=== PATIENT | female | born 1965 | race Caucasian/White ===

== ENCOUNTER 2023-05-12 20:25 | Emergency (ER) | payer MEDICAID, SELFPAY ==
[2023-05-12 20:36] VITALS: BP 146/86; PULSE 95; RESP 18; TEMP 36.6; O2SAT 97; BMI 20.8
--- NOTE | 2023-05-12 21:04 | ED.GENADULT ---
HPI - General Adult General Chief complaint: Skin/Abscess/Foreign Body Stated complaint: pain on rt bottom side going down & to other side Time Seen by Provider: 05/12/23 20:32 History of Present Illness HPI narrative: This 58-year-old female comes in with pain at her bottom that has been present on and off for the past 3 or 4 months. She did note some drainage today of purulent fluid from this area. She states that she has a history of Crohn's disease and was taking medication from her young adult years up to about age 35 and then has not taken anything since then. She does not report any fevers. Related Data Home Medications Medication Instructions Recorded Confirmed No Known Home Medications 05/12/23 05/12/23 Allergies Allergy/AdvReac Type Severity Reaction Status Date / Time No Known Drug Allergies Allergy Verified 05/12/23 20:36 Review of Systems Status of ROS: Reports: 10 or more systems reviewed and unremarkable except as noted in History and below Narrative: Constitutional: No fevers, no weight gain or loss. Eyes: No discharge. No vision changes. HENT: No congestion, no sore throat, no ear pain. Cardiovascular: No chest pain, no palpitations. Respiratory: No shortness of breath, no wheezes, no cough. Gastrointestinal: No abdominal pain, no vomiting, no diarrhea. Genitourinary: No dysuria, no hematuria. Musculoskeletal: Normal range of motion. Skin: No rashes, no pruritis. Neurological: No dizziness, weakness, sensory change, speech change. Endo/Heme/Allergies: No bruising or bleeding. No polydipsia. Pysch: no suicidality, no anxiety, no insomnia. All other systems reviewed and are negative. Exam Narrative: Exam Narrative: Constitutional: Well-developed, well-nourished, no acute distress. HEENT: Normocephalic, atraumatic. Neck: Normal range of motion. Nontender. Supple. Heart: Regular. No murmurs. Normal rate. Intact distal pulses. Lungs: Clear to auscultation. No chest discomfort. No wheezes, rhonchi, or rales. Abdomen: Normal bowel sounds. Nontender. No rebound tenderness. Genitalia: Deferred. Back: No midline tenderness. Normal range of motion. Extremities: Normal range of motion. No injury. Skin: Intact. No rash. Warm. Mild erythema with some swelling and significant tenderness in the perianal area a especially involving the inner aspects of the buttocks and the area superior to the anus. Neurologic: No altered sensation. No weakness. Alert and oriented. Psychiatric: No suicidality. No anxiety or depression. No insomnia. Nursing notes and vitals signs are reviewed. Const: Vital Signs, click to edit/add: Vital Signs - 24 hr 05/12/23 20:36 Temperature 97.8 F Pulse Rate [Pulse Oximeter] 95 Respiratory Rate 18 Blood Pressure [Ri ght Upper Arm] 146/86 H Pulse Oximetry 97 Oxygen Delivery Me thod Room Air Course Vital Signs Vital signs: Initial Vital Signs Temperature 97.8 F 05/12/23 20:36 Temperature Source Temporal Artery Scan 05/12/23 20:36 Pulse Rate 95 05/12/23 20:36 Respiratory Rate 18 05/12/23 20:36 Blood Pressure 146/86 H 05/12/23 20:36 Blood Pressure Mean 106 H 05/12/23 20:36 Pulse Oximetry 97 05/12/23 20:36 Oxygen Delivery Method Room Air 05/12/23 20:36 Vital Signs Temperature 97.8 F 05/12/23 20:36 Pulse Rate 95 05/12/23 20:36 Respiratory Rate 18 05/12/23 20:36 Blood Pressure 146/86 H 05/12/23 20:36 Pulse Oximetry 97 05/12/23 20:36 Oxygen Delivery Method Room Air 05/12/23 20:36 Temperature 97.8 F 05/12/23 20:36 Pulse Rate 95 05/12/23 20:36 Respiratory Rate 18 05/12/23 20:36 Blood Pressure 146/86 H 05/12/23 20:36 Pulse Oximetry 97 05/12/23 20:36 Oxygen Delivery Method Room Air 05/12/23 20:36 Medical Decision Making MDM Narrative Medical decision making narrative: This patient has significant pain and some swelling in the perianal area mostly superior to the anus typical of a pilonidal cyst or cellulitis. I did use bedside ultrasound to evaluate for the likelihood of getting sufficient drainage from this area. There is some small amounts of fluid in loculated areas but no clear evidence of abscess that would be drainable. The patient received prescriptions for Augmentin and [place]. I did advise her to follow-up with surgery Clinic if not improving or if worsening. She does report this history of Crohn's disease and may have developed a fistula however she states that she really has not had any symptoms of Crohn's over the past almost 20 years and has not taken any medications to treat it. Discharge Plan Discharge Clinical Impression: Pilonidal cyst with abscess Patient Disposition: Home, Self-Care Condition: Unchanged Additional Instructions: Take medication as prescribed. Follow up with surgery Clinic for ongoing management. Return if not improving or worsening. Prescriptions: No Action No Known Home Medications Stand Alone Forms: [employer] Info Instructions
== END 2023-05-12 21:26 | disposition home or self-care (01) ==
LOC: ED 21:23
PROVIDERS: Emergency Provider Emergency Medicine Emergency Medical Services
DX: L05.01 Pilonidal cyst with abscess (principal)
CPT/HCPCS: 99283; 99284

== ENCOUNTER 2023-05-17 15:30 | Emergency (ER) | payer MEDICAID, SELFPAY ==
[2023-05-17] VITALS (11 sets, daily range): BP systolic 100–127; BP diastolic 62–78; PULSE 68–91; RESP 16; TEMP 36.7; O2SAT 95–99; BMI 16.6
--- NOTE | 2023-05-17 16:10 | CT_ITS ---
Patient: DONALD GARCIA Facility:?[facility] Patient ID:?[id number] Site Patient ID:?[id number]. Site :?[id number] Study:?CT-Abdomen/Pelvis w/ 51cc [id number] 4:32:37 PM Ordering Physician:Katya Macias Final Report: INDICATION: Gluteal abscess/cellulitis. History of Crohn`s disease. TECHNIQUE: CT abdomen and pelvis acquired without and with 51 cc Isovue 370 IV contrast. COMPARISON: December 01, 2016. FINDINGS: A large complex perianal abscess measures 10 x 8 x 5 cm as visualized on axial series 2, image 136. This is predominantly posterior and to the right of the anus. A separate and likely communicating fluid collection along the anterior left margin of the anus measures 4 x 3 cm on series 2, image 122. There is stool retention throughout the colon. Unremarkable small bowel. The liver is normal in size, shape and attenuation. Unremarkable gallbladder. No biliary dilatation. The spleen, adrenal glands and pancreas are within normal limits. Few small nonobstructive renal stones. Kidneys otherwise unremarkable. Pelvic organs are unremarkable. No lymphadenopathy evident. No free air or significant free fluid. The lung bases are clear. IMPRESSION: 1. Very large complex perianal abscess measuring 10 x 8 x 5 cm with a separate possibly communicating left anterior perianal abscess measuring 4 x 3 cm. 2. Constipation pattern in the colon. Please note that all CT scans at this facility use dose modulation, iterative reconstruction, and/or weight-based dosing when appropriate to reduce radiation dose to as low as reasonably achievable. Dictated by Vikram Monsivais MD @ 05/17/2023 5:03:18 PM Signed by:?Vikram Monsivais MD @05/17/2023 5:03:18 PM (Electronic Signature)
--- NOTE | 2023-05-17 16:12 | ED.GENADULT ---
HPI - General Adult General Date Seen: 05/17/23 Chief complaint: Urogenital Problems, Female Stated complaint: Painful Cyst Time Seen by Provider: 05/17/23 15:58 Source: patient, RN notes reviewed and old records reviewed Mode of arrival: ambulatory Limitations: no limitations History of Present Illness HPI narrative: Patient is a 58-year-old woman who was here Saturday night, returns Saturday for evaluation of gluteal pain and swelling. On Saturday, was felt to have a developing pilonidal abscess but no focal fluid collection was identified on ultrasound that could be drained. She was started on Augmentin, but says that she is not improved. She says for the 1st few hours of the day she feels okay but as the day goes on she developed significant pain and swelling. She has not had fevers or chills. She notes a history of Crohn's disease, she says that she got 12 years ago and did not have health insurance and so she was not able to continue medications or have medical care, but does not feel she has been significantly symptomatic related to Crohn's disease over those years. She still does not have health insurance. She just quit her job. She denies other medical history. No allergies. She smokes less than a pack of cigarettes a week. She does not drink, no drug history. Related Data Home Medications Medication Instructions Recorded Confirmed No Known Home Medications 05/12/23 05/12/23 Allergies Allergy/AdvReac Type Severity Reaction Status Date / Time No Known Drug Allergies Allergy Verified 05/17/23 15:48 Review of Systems Status of ROS: Reports: 10 or more systems reviewed and unremarkable except as noted in History and below [facility] Social History Smoking Status: Current some day smoker How often do you have a drink containing alcohol: never AUDIT-C Alcohol total score: 0 Non-prescribed substance use: denies use Exam Narrative: Exam Narrative: Vital signs reviewed In general, alert, nontoxic woman, tearful secondary to pain. Abdomen: Soft nontender nondistended. Back: She has induration erythema and swelling right gluteal region greater than left with erythema extending down toward the chio anal area. She had significant pain with very minimal palpation, did not tolerate rectal exam initially. Skin: Warm dry well perfused. Const: Vital Signs, click to edit/add: Vital Signs - 24 hr 05/17/23 15:45 05/17/23 16:47 05/17/23 16:48 Temperature 98.1 F Pulse Rate 70 70 Pulse Rate [Right Pulse Oximeter] 91 Respiratory Rate 16 Blood Pressure 114/68 Blood Pressure [Ri ght Upper Arm] 127/78 Pulse Oximetry 98 98 98 Oxygen Delivery Me thod Room Air 05/17/23 17:00 05/17/23 17:02 05/17/23 17:30 Temperature Pulse Rate 68 72 76 Pulse Rate [Right Pulse Oximeter] Respiratory Rate Blood Pressure 103/68 Blood Pressure [Ri ght Upper Arm] Pulse Oximetry 99 97 96 Oxygen Delivery Me thod 05/17/23 17:32 05/17/23 18:00 05/17/23 18:02 Temperature Pulse Rate 76 78 82 Pulse Rate [Right Pulse Oximeter] Respiratory Rate Blood Pressure 100/65 109/75 Blood Pressure [Ri ght Upper Arm] Pulse Oximetry 98 99 95 Oxygen Delivery Me thod 05/17/23 18:30 05/17/23 18:32 Temperature Pulse Rate 74 75 Pulse Rate [Right Pulse Oximeter] Respiratory Rate Blood Pressure 101/62 Blood Pressure [Ri ght Upper Arm] Pulse Oximetry 98 98 Oxygen Delivery Me thod Documenting provider has reviewed patient's vital signs: yes Course Course ED Course: Will place an IV here, give her some morphine and Toradol, fluids, Zofran. I do think with her history of Crohn's and the appearance of this that a CT scan would be helpful to delineate the area of cellulitis, look for areas of fluid collections, assess for possible communication with the rectum. CBC, metabolic panel, CRP lactate pending. White blood cell count was significantly elevated at 27,000 seven thousand, CRP 20.1. Lactate was normal. Metabolic panel showed a sodium of 134, potassium of 3.4, creatinine was 0.4 BUN 14. Blood sugar 103. LFTs normal. CT scan read as follows by Radiology:FINDINGS: A large complex perianal abscess measures 10 x 8 x 5 cm as visualized on axial series 2, image 136. This is predominantly posterior and to the right of the anus. A separate and likely communicating fluid collection along the anterior left margin of the anus measures 4 x 3 cm on series 2, image 122. There is stool retention throughout the colon. Unremarkable small bowel. The liver is normal in size, shape and attenuation. Unremarkable gallbladder. No biliary dilatation. The spleen, adrenal glands and pancreas are within normal limits. Few small nonobstructive renal stones. Kidneys otherwise unremarkable. Pelvic organs are unremarkable. No lymphadenopathy evident. No free air or significant free fluid. The lung bases are clear. IMPRESSION: 1. Very large complex perianal abscess measuring 10 x 8 x 5 cm with a separate possibly communicating left anterior perianal abscess measuring 4 x 3 cm. 2. Constipation pattern in the colon. Case was discussed with Dr. Webster, general surgery, who felt that I&D could be managed in the emergency department if that was what the patient preferred. In talking to her, she feels as if she will be fine with the procedure here in the emergency department. I did give her an additional 4 mg of morphine for pain and 2 mg of Versed for anxiolytic in anticipation of needing to do 2 separate I and D's on either side. Interestingly, she does tell me that a dog knocked her over recently and she fell landing on her tailbone. She says that she finger there was nothing to do for tailbone injury so she was not seen, but she did have some bruising and swelling over the area. Procedure note: Patient was given anti lysis and pain medication as outlined above. She was on the monitor. Fluid pockets were identified using the ultrasound and then overlying skin was anesthetized using lidocaine with epinephrine. A 10. Scalpel was used to make an elliptical incision over the right gluteal fluid collection as well as the left gluteal fluid collection. I used a straight mosquito to break up loculations. She had a massive amount of purulent liquid as well as some blood clots which were expressed from bilateral cavities. Bleeding was controlled. I placed 2 in packing in both abscess cavities. A dressing was applied over the top. Wound culture was sent. Overall, she tolerated this very well. She is comfortable at this time, without specific complaints. Given the size of this abscess as well as her elevated white blood cell count, I do think she needs close follow-up. She does not have medical insurance presently. She is nontoxic in appearance, she is afebrile, lactate is normal, and drainage should help significantly. I think it is reasonable to let her go home. I did give her Rocephin 1 g IV here and discharging her home on doxycycline. I have asked to return to the emergency department in 24 hours to have the packing removed, recheck white blood cell count and wounds. If she is worsening, she may need admission to the hospital, but otherwise can be seen in clinic follow-up with General surgery next week. I have asked her to call on Saturday and make an appointment. Have reviewed with her that at any time if she is feeling significantly worse, has high fevers, shaking chills, vomiting, severe increase in redness swelling or pain, that she should return to the emergency department immediately. I have asked her to use ibuprofen and Tylenol for pain but did give her prescription from [facility] for oxycodone, 10 tablets to use for uncontrolled pain. Vital Signs Vital signs: Initial Vital Signs Temperature 98.1 F 05/17/23 15:45 Temperature Source Temporal Artery Scan 05/17/23 15:45 Pulse Rate 91 05/17/23 15:45 Pulse Rhythm Regular 05/17/23 15:45 Pulse Strength 3+ Normal 05/17/23 15:45 Respiratory Rate 16 05/17/23 15:45 Blood Pressure 127/78 05/17/23 15:45 Blood Pressure Mean 94 05/17/23 15:45 Blood Pressure Position Standing 05/17/23 15:45 Pulse Oximetry 98 05/17/23 15:45 Oxygen Delivery Method Room Air 05/17/23 15:45 Vital Signs Temperature 98.1 F 05/17/23 15:45 Pulse Rate 91 05/17/23 15:45 Respiratory Rate 16 05/17/23 15:45 Blood Pressure 127/78 05/17/23 15:45 Pulse Oximetry 98 05/17/23 15:45 Oxygen Delivery Method Room Air 05/17/23 15:45 Temperature 98.1 F 05/17/23 15:45 Pulse Rate 75 05/17/23 18:32 Respiratory Rate 16 05/17/23 15:45 Blood Pressure 101/62 05/17/23 18:32 Pulse Oximetry 98 05/17/23 18:32 Oxygen Delivery Method Room Air 05/17/23 15:45 Medications Administered Medications: Discontinued Medications Generic Name Dose Route Start Last Admin Trade Name Freq PRN Reason Stop Dose Admin Sodium Chloride 1,000 mls @ 1,000 mls/hr 05/17/23 16:15 05/17/23 18:38 0.9 % Sodium Chloride 1000 Ml IV 05/17/23 17:14 Infused .Q1H AYAN Infusion Ceftriaxone Sodium 1 gm/ 100 mls @ 200 mls/hr 05/17/23 18:00 05/17/23 18:50 Sodium Chloride IVPB 05/17/23 18:01 Infused ONCE ONE Infusion Ketorolac Tromethamine 15 mg 05/17/23 16:05 05/17/23 16:37 Ketorolac 15 Mg/Ml Inj IVP 05/17/23 16:06 15 mg ONCE ONE Administration Midazolam HCl 2 mg 05/17/23 17:19 05/17/23 17:24 Midazolam Hcl 1 Mg/Ml Inj IVP 05/17/23 17:20 2 mg ONCE ONE Administration Morphine Sulfate 4 mg 05/17/23 16:05 05/17/23 16:36 Morphine 4 Mg/Ml Inj IVP 05/17/23 16:06 4 mg ONCE ONE Administration Morphine Sulfate 4 mg 05/17/23 17:19 05/17/23 17:22 Morphine 4 Mg/Ml Inj IVP 05/17/23 17:20 4 mg ONCE ONE Administration Ondansetron HCl 4 mg 05/17/23 16:06 05/17/23 16:37 Ondansetron 2 Mg/Ml Inj IVP 05/17/23 16:07 4 mg ONCE ONE Administration Medical Decision Making Lab Data Labs: Lab Results 05/17/23 Range/Units 16:20 WBC 26.76 H* (4.50-11.00) K/uL RBC 3.74 L (4.00-5.20) m/uL Hgb 10.7 L (12.0-16.0) gm/dL Hct 33.2 (33.0-51.0) % MCV 89 (80-100) fL MCH 29 (26-34) pg MCHC 32 (32-36) gm/dL RDW Coeff of Yury 14.0 (11.5-15.5) % Plt Count 558 H (140-440) K/uL Neut % (Auto) 91.0 H (42.0-72.0) % Lymph % (Auto) 4.0 L (20-44) % [place] % (Auto) 4.3 (0.0-11.0) % Eos % (Auto) 0.2 (0.0-7.0) % Baso % (Auto) 0.1 (0.0-3.0) % Neut # (Auto) 24.40 H (1.7-7.0) K/uL Lymph # (Auto) 1.10 (0.90-2.90) K/uL [place] # (Auto) 1.20 H (0.00-0.90) K/UL Eos # (Auto) 0.10 (0.00-0.50) K/uL Baso # (Auto) 0.00 (0.00-0.30) K/uL Abs Immat Gran (auto) 0.10 (0.00-0.30) K/uL Imm/Tot Granulo (auto) 0.4 % Diff Slide Review Acceptable Review (Acceptable) Sodium 134 L (135-149) mmol/L Potassium 3.4 L (3.6-5.1) mmol/L Chloride 95 L (96-114) mmol/L Carbon Dioxide 30 (20-32) mmol/L Anion Gap 9 (7-15) mEq/L BUN 14 (7-30) mg/dL Creatinine 0.4 L (0.5-1.5) mg/dL Estimated Creat Clear 113.07 Estimated GFR 115 ml/min Glucose 103 (60-115) mg/dL Lactate 1.2 (0.5-1.9) mmol/L Calcium 9.6 (8.4-10.6) mg/dL Total Bilirubin 0.6 (0.1-1.5) mg/dL Direct Bilirubin 0.3 (0.0-0.5) mg/dL AST 22 (12-35) U/L ALT 18 (4-35) U/L Alkaline Phosphatase 138 (40-150) U/L C-Reactive Protein 20.1 H (0.5-1.0) mg/dL Total Protein 7.1 (6.0-8.3) g/dL Albumin 3.5 (3.3-5.0) g/dL Discharge Plan Discharge Clinical Impression: Abscess, perianal Patient Disposition: Home, Self-Care Condition: Improved Instructions: Abscess Incision and Drainage (DC) Additional Instructions: Antibiotic as prescribed. Ibuprofen 400 mg plus Tylenol 1000 mg 3 times daily for pain. Oxycodone if needed for uncontrolled pain. If at any time you have significant worsening such as fever, shaking chills, significant worsening redness swelling or pain, return to the emergency department. Otherwise return in about 24 hours for recheck. Please call on Saturday to make an appointment with 1 of the general surgeons in clinic next week. Phone number is [phone]. Prescriptions: No Action No Known Home Medications Follow Up/Referrals: Provider,Not a Local [Primary Care Provider] - Stand Alone Forms: [employer] Info Instructions
[2023-05-17 16:29] LABS: Lactate Sepsis w/Reflex* 1.2 mmol/L (0.5-1.9)
[2023-05-17] MEDS: 0.9 % SODIUM CHLORIDE 1000 ml 1,000 ML IV (16:31)
[2023-05-17 16:32] LABS: Basophils Percent Auto 0.1 % (0.0-3.0); Eosinophils Percent Auto 0.2 % (0.0-7.0); Hematocrit 33.2 % (33.0-51.0); Hemoglobin* 10.7 gm/dL (12.0-16.0); Immature Granulocytes Pct Auto 0.4 %; Mean Corpuscular HGB Conc 32 gm/dL (32-36); Mean Corpuscular Hemoglobin 29 pg (26-34); Mean Corpuscular Volume 89 fL (80-100); Monocytes Percent Auto 4.3 % (0.0-11.0); Platelet Count* 558 K/uL (140-440); Red Blood Count 3.74 m/uL (4.00-5.20)
[2023-05-17] MEDS: MORPHINE 4 MG/ML INJ IVP ×2 (16:36→17:22)
[2023-05-17] MEDS: KETOROLAC 15 MG/ML inj IVP (16:37)
[2023-05-17] MEDS: ONDANSETRON 2 MG/ML inj 4 MG IVP (16:37)
[2023-05-17 16:45] LABS: Albumin* 3.5 g/dL (3.3-5.0); Chloride* 95 mmol/L (96-114)
[2023-05-17 16:46] LABS: Potassium* 3.4 mmol/L (3.6-5.1); Sodium* 134 mmol/L (135-149)
[2023-05-17 16:47] LABS: Slide Review Reflex Yes
[2023-05-17 16:48] LABS: Alkaline Phosphatase* 138 U/L (40-150); Anion Gap 9 mEq/L (7-15); Aspartate Amino Transferase* 22 U/L (12-35); Bilirubin Direct* 0.3 mg/dL (0.0-0.5); Bilirubin Total* 0.6 mg/dL (0.1-1.5); Blood Urea Nitrogen* 14 mg/dL (7-30); Carbon Dioxide* 30 mmol/L (20-32); Creatinine* 0.4 mg/dL (0.5-1.5); Est. Creatinine Clearance* 113.07; Estimated Glomerular Filt Rate 115 ml/min; Total Protein* 7.1 g/dL (6.0-8.3)
[2023-05-17 16:49] LABS: Alanine Aminotransferase* 18 U/L (4-35); Calcium* 9.6 mg/dL (8.4-10.6); Glucose* 103 mg/dL (60-115); White Blood Count* 26.76 K/uL (4.50-11.00)
[2023-05-17 17:02] LABS: C Reactive Protein* 20.1 mg/dL (0.5-1.0)
[2023-05-17 17:21] LABS: Slide Review Acceptable Review (Acceptable)
[2023-05-17] MEDS: MIDAZOLAM HCL 1 MG/ML inj 2 MG IVP (17:24)
[2023-05-17] MEDS: cefTRIAXone 1 GM in 0.9 % SODIUM CHLORIDE Mini-bag 100 ML IVPB (18:15)
== END 2023-05-17 19:13 | disposition home or self-care (01) ==
PROVIDERS: Emergency Provider Emergency Medicine
DX: K61.0 Anal abscess (principal)
CPT/HCPCS: 46050; 36415; 74177; 80048; 80076; 83605; 85025; 86140; 87040; 87070; 87186; 96365; 96375; 99284; 99285; J0696; J1885; J2250; J2270; J2405; J7030; Q9967

== ENCOUNTER 2023-05-19 14:15 | Emergency (ER) | payer MEDICAID, SELFPAY ==
[2023-05-19 14:34] VITALS: BP 129/74; PULSE 68; RESP 17; TEMP 37; O2SAT 100; BMI 17.4
--- NOTE | 2023-05-19 14:47 | ED.GENADULT ---
HPI - General Adult General Chief complaint: Laceration/Wound Stated complaint: Labs Time Seen by Provider: 05/19/23 14:40 Source: patient, RN notes reviewed and old records reviewed Mode of arrival: ambulatory Limitations: no limitations History of Present Illness HPI narrative: Patient is a 58 year old woman who I saw 2 days ago with a large perianal abscess. Packing was placed though she said that when she took her underwear off that night she inadvertently pulled the packing out. She has been taking the antibiotic as prescribed and she reports that she is feeling much better. She still has pain but is feeling vastly improved. No fevers, vomiting or chills. Related Data Home Medications Medication Instructions Recorded Confirmed No Known Home Medications 05/12/23 05/12/23 Allergies Allergy/AdvReac Type Severity Reaction Status Date / Time No Known Drug Allergies Allergy Verified 05/17/23 15:48 PFSH PFS Social History Smoking Status: Current some day smoker How often do you have a drink containing alcohol: never How often do you have six or more drinks on one occasion: Never AUDIT-C Alcohol total score: 0 Non-prescribed substance use: denies use Exam Narrative: Exam Narrative: Vitals signs reviewed. In general, she is well appearing. Back: Significantly improved, nearly resolved erythema over the gluteal area. No active drainage at this time though incisions remain open. Const: Vital Signs, click to edit/add: Vital Signs - 24 hr 05/19/23 14:34 Temperature 98.6 F Pulse Rate [Pulse Oximeter] 68 Respiratory Rate 17 Blood Pressure [Ri ght Upper Arm] 129/74 Pulse Oximetry 100 Oxygen Delivery Me thod Room Air Documenting provider has reviewed patient's vital signs: yes Course Course ED Course: Plan was for patient to come back yesterday but she said she didn't feel able to drive yesterday and her family is all out of town, so she waited until today. She is doing well. Will repeat her white count and give Ertapenam 1 g IV as planned, then I think outpatient follow up as outlined previously will be reasonable. White blood cell count is down to 11.9 from 20/7, CRP is improved from 20 to 6.1. Vital Signs Vital signs: Initial Vital Signs Temperature 98.6 F 05/19/23 14:34 Temperature Source Temporal Artery Scan 05/19/23 14:34 Pulse Rate 68 05/19/23 14:34 Respiratory Rate 17 05/19/23 14:34 Blood Pressure 129/74 05/19/23 14:34 Blood Pressure Mean 92 05/19/23 14:34 Pulse Oximetry 100 05/19/23 14:34 Oxygen Delivery Method Room Air 05/19/23 14:34 Vital Signs Temperature 98.6 F 05/19/23 14:34 Pulse Rate 68 05/19/23 14:34 Respiratory Rate 17 05/19/23 14:34 Blood Pressure 129/74 05/19/23 14:34 Pulse Oximetry 100 05/19/23 14:34 Oxygen Delivery Method Room Air 05/19/23 14:34 Temperature 98.6 F 05/19/23 14:34 Pulse Rate 68 05/19/23 14:34 Respiratory Rate 17 05/19/23 14:34 Blood Pressure 129/74 05/19/23 14:34 Pulse Oximetry 100 05/19/23 14:34 Oxygen Delivery Method Room Air 05/19/23 14:34 Medications Administered Medications: Discontinued Medications Generic Name Dose Route Start Last Admin Trade Name Freq PRN Reason Stop Dose Admin Ertapenem 1 gm/ Sodium 100 mls @ 200 mls/hr 05/19/23 14:43 05/19/23 15:30 Chloride IVPB 05/19/23 14:44 Infused ONCE ONE Infusion Medical Decision Making Lab Data Labs: Lab Results 05/19/23 Range/Units 15:00 WBC 11.91 H (4.50-11.00) K/uL RBC 3.58 L (4.00-5.20) m/uL Hgb 10.1 L (12.0-16.0) gm/dL Hct 31.4 L (33.0-51.0) % MCV 88 (80-100) fL MCH 28 (26-34) pg MCHC 32 (32-36) gm/dL RDW Coeff of Yury 14.0 (11.5-15.5) % Plt Count 664 H (140-440) K/uL Neut % (Auto) 79.7 H (42.0-72.0) % Lymph % (Auto) 13.0 L (20-44) % [place] % (Auto) 5.2 (0.0-11.0) % Eos % (Auto) 0.6 (0.0-7.0) % Baso % (Auto) 0.3 (0.0-3.0) % Neut # (Auto) 9.50 H (1.7-7.0) K/uL Lymph # (Auto) 1.50 (0.90-2.90) K/uL [place] # (Auto) 0.60 (0.00-0.90) K/UL Eos # (Auto) 0.10 (0.00-0.50) K/uL Baso # (Auto) 0.00 (0.00-0.30) K/uL Abs Immat Gran (auto) 0.10 (0.00-0.30) K/uL Imm/Tot Granulo (auto) 1.2 % C-Reactive Protein 6.1 H (0.5-1.0) mg/dL Discharge Plan Discharge Clinical Impression: Wound check, abscess, Abscess, perianal Patient Disposition: Home, Self-Care Condition: Improved Instructions: Warm Compress or Soak (ED) Additional Instructions: I would recommend soaking in a warm tub a couple times a day, gently agitating the water around those wounds. Surgery follow-up next week as previously discussed, to schedule. Continue your antibiotic. Blood work today is significantly improved and external evidence of infection is nearly completely resolved. Prescriptions: No Action No Known Home Medications Follow Up/Referrals: Provider,Not a Local [Primary Care Provider] - Stand Alone Forms: [employer] Info Instructions
[2023-05-19] MEDS: ERTAPENEM 1 GM in 0.9 % SODIUM CHLORIDE Mini-bag 100 ML IVPB (14:55)
[2023-05-19 15:09] LABS: Basophils Percent Auto 0.3 % (0.0-3.0); Eosinophils Percent Auto 0.6 % (0.0-7.0); Hematocrit 31.4 % (33.0-51.0); Hemoglobin* 10.1 gm/dL (12.0-16.0); Immature Granulocytes Pct Auto 1.2 %; Mean Corpuscular HGB Conc 32 gm/dL (32-36); Mean Corpuscular Hemoglobin 28 pg (26-34); Mean Corpuscular Volume 88 fL (80-100); Monocytes Percent Auto 5.2 % (0.0-11.0); Neutrophils Percent Auto 79.7 % (42.0-72.0); Platelet Count* 664 K/uL (140-440); Red Blood Count 3.58 m/uL (4.00-5.20); White Blood Count* 11.91 K/uL (4.50-11.00)
[2023-05-19 15:14] LABS: Slide Review Reflex No
[2023-05-19 15:36] LABS: C Reactive Protein* 6.1 mg/dL (0.5-1.0)
--- NOTE | 2023-05-20 11:46 | ED.NURSE ---
Pt called via phone, asking for refill on oxycodone. Pt states she has been taking 400mg Motrin and 325mg Tylenol per dose, Pt denies hx of liver/kidney issues. Counseled Pt on increasing Motrin and Tylenol to Motrin 800mg TID and Tylenol 975mg (3tabs) TID per dose and reinforced importance of making appointment with surgery clinic for f/u, as D/C instructions directed. Pt also informed ED is unable to refill rx over the phone, but provided options for inability to manage pain at home.
== END 2023-05-19 15:45 | disposition home or self-care (01) ==
PROVIDERS: Emergency Provider Emergency Medicine; Visit Provider Physician Assistant
DX: K61.0 Anal abscess (principal)
CPT/HCPCS: 36415; 85025; 86140; 96365; 99284; J1335

== ENCOUNTER 2023-07-23 19:21 | Emergency (ER) | payer BC, SELFPAY ==
[2023-07-23 19:28] VITALS: BP 138/81; PULSE 73; RESP 18; TEMP 36.7; O2SAT 99; BMI 18.6
--- NOTE | 2023-07-23 20:09 | ED_ITS ---
HPI - General Adult General Date Seen: 07/23/23 Chief complaint: Post Op Complication Stated complaint: Crohn's exacerbation Time Seen by Provider: 07/23/23 19:58 History of Present Illness HPI narrative: 58-year-old female who has a history of Crohn's disease (had been off medications for many years due to loss of health insurance) that lead to complications including perirectal abscesses in May. These were drained here in the ER in [place] on May 18 and she was sent home on cephalexin. and that she had follow-up with [place] surgery in June. She was put on Flagyl for her perirectal abscesses. Ultimately she was referred to a surgeon or GI specialist at [facility] in [place] ([facility] surgery note indicates she was referred to colorectal surgery associates), through [facility], sometime in June. Per records from [facility] she was hospitalized at [facility] in June. 06/19- 06/24 Per discharge summary, ? Ms. Maisha Duncan is a 58 y.o. female with a history of Crohn's disease involving the small bowel as well as the rectum and perianal area, depression/anxiety, GERD who presents with rectal pain. ? History of Crohn's disease for which she has not been on treatment since 2016. States it was under reasonable control until early May when she began having perianal pain. Seen in the [place] ED and given antibiotics. Return to [address] on 05/17/2023 revealed a 10 cm perianal abscess as well as a 4 cm perianal abscess. These were drained in the ED and she was referred to Dr. Merchant of colorectal surgery who she saw on 06/06/2023. Repeat imaging with an MRI of the pelvis was performed on 06/11/2023 which showed multiple perianal/perirectal abscesses and fistulas. Seen in GI clinic on 06/18/2023 and plan was to schedule an exam under anesthesia for drainage of her multiple abscesses. The pain progressed and she presented to the [facility] on 06/19/[address] showed a perirectal and perianal abscess with new fistula. Afebrile with WBC 12.9. Treated with ceftriaxone and metronidazole. General surgery recommended transferring to a facility with colorectal surgery availability. ? Colorectal surgery saw the patient and she underwent drainage of rectal abscess. She tolerated the procedure with no immediate complications. She was continued on her IV antibiotics. ? For her dysphagia, she was seen by GI and she underwent EGD showing possible eosinophilic esophagitis, PPI increased BID. ? She remained clinically improved the remainder of her hospital stay. She says for the 1st couple weeks since discharge she was doing reasonably well. She is having some mild pain managed well on oxycodone but that got better and she is no longer needed oxycodone. She was discharged home with about a week's worth of antibiotics after leaving the hospital. She had been doing well. She has plans for another colorectal surgery procedure coming up in a couple of weeks. However about 3 days ago she started developing worsening pain in her buttocks and perirectal area that sometimes shoots into other is over pelvis. No clear pattern to the pain. No clear relation to stools or defecation. She is noting some purulent drainage and blood from the drains in her buttocks. No definite fevers. No vomiting. No anterior abdominal pain. She tried to call her colorectal surgery office or G office today and was told to come to the ER. She came here in [place]. Related Data Home Medications Medication Instructions Recorded Confirmed cephalexin 500 mg capsule 500 mg PO TID 05/24/23 05/29/23 Previous Rx's Medication Instructions Recorded metronidazole 500 mg tablet 500 mg PO BID #28 tabs 05/29/23 oxycodone 5 mg tablet 5 mg PO DAILY PRN pain #10 tabs 05/29/23 ciprofloxacin HCl 500 mg tablet 500 mg PO BID #14 tabs 07/23/23 fluoxetine 10 mg tablet 10 mg PO QAM #60 tabs 07/23/23 metronidazole 500 mg tablet 500 mg PO TID #21 tabs 07/23/23 oxycodone 5 mg capsule 5 mg PO Q6H PRN pain #10 caps 07/23/23 Allergies Allergy/AdvReac Type Severity Reaction Status Date / Time No Known Drug Allergies Allergy Verified 07/23/23 21:20 [facility] Medical History (Updated 07/23/23 @ 23:51 by Kaushal Burton MD) Stricture of esophagus (2007) ?K22.2 - Esophageal obstruction (ICD-10) Gastroesophageal reflux disease ?K21.9 - Gastro-esophageal reflux disease without esophagitis (ICD-10) Crohn's disease (1983) ?K50.90 - Crohn's disease, unspecified, without complications (ICD-10) Anxiety with depression ?F41.8 - Other specified anxiety disorders (ICD-10) Abscess, perianal ?K61.0 - Anal abscess (ICD-10) Environmental allergies ?Z91.09 - Other allergy status, other than to drugs and biological substances (ICD-10) Surgical History (Updated 05/24/23 @ 16:13 by Ivette Trujillo MD) History of esophageal dilatation (2017) ?Z98.890 - Other specified postprocedural states (ICD-10) History of Judi fundoplication (~1994) ?Z98.890 - Other specified postprocedural states (ICD-10) History of endometrial ablation (09/08/07) ?Z98.890 - Other specified postprocedural states (ICD-10) Status post tubal ligation ?Z98.51 - Tubal ligation status (ICD-10) History of thyroid surgery (2004) ?Z98.890 - Other specified postprocedural states (ICD-10) History of section ?Z98.891 - History of uterine scar from previous surgery (ICD-10) Family History (Updated 05/29/23 @ 10:27 by Irena Sandoval MD) Father Diabetes Myocardial infarction, Onset Age: 58 Kidney disease Mother Colon cancer, Onset Age: 46 Ovarian cancer Brother Crohn's disease Social History (Updated 05/24/23 @ 16:15 by Ivette Trujillo MD) Narrative: 14 years ago, unemployed, lives in [place] with adult daughter and her family Exercises 3 to 4 times a week by doing go Smokes 1-2 cigarettes a day, 19 pack year Rare alcohol use No drug use What is your current living situation?: I presently have a place to live Problems where you live: no known problems In the past 12 months, utilities in danger of being shut off: no In past 12 months, lack of transportation kept you from medical appts, meetings, work, or getting things needed for daily living: no In the past 12 mos, have been you worried that your food would run out before you had money to buy more?: never true In the past 12 mos, the food you bought just didn't last and you didn't have money to buy more?: never true Smoking Status: Current some day smoker What tobacco products do you use: cigarettes Do you use any of these nicotine containing products: None Second hand tobacco smoke exposure: No How often do you have a drink containing alcohol: never How often do you have six or more drinks on one occasion: Never AUDIT-C Alcohol total score: 0 Non-prescribed substance use: denies use How often does anyone, including family, friends and others, physically hurt you : never How often does anyone, including family, friends and others, insult or talk down to you: never How often does anyone, including family, friends and others, threaten you with harm: never How often does anyone, including family, friends and others, scream or curse at you: never Little interest or pleasure in doing things: several days Feeling down, depressed, or hopeless: more than half the days service: No Exam Narrative: Exam Narrative: Constitutional: Appears well-developed and well-nourished. Alert. Conversant. Non toxic. HENT: Head: Atraumatic. Nose: Nose normal. Mouth/Throat: Oral mucosa is clear and moist. no trismus. Pharynx normal. Tonsils symmetric. No tonsillar enlargement, erythema, or exudate. Eyes: Conjunctivae normal. EOM normal. Pupils equal, round, and reactive to light. No scleral icterus. Neck: Normal range of motion. Neck supple. No tracheal deviation present. Cardiovascular: Normal rate, regular rhythm. No gallop. No friction rub. No murmur heard. Symmetric radial artery pulses Pulmonary/Chest: Effort normal. No stridor. No respiratory distress. No wheezes. No rales. No rhonchi . No tenderness. Abdominal: Soft. Bowel sounds normal. No distension. No mass. Mild suprapubic tenderness. No rebound. No guarding. Rectal: Exam performed in the hands and knees position. She does have drains in both of her buttocks. Surrounding each drain there is roughly a rim of 2-5 cm of erythema. There is purulent drainage on the patient's gluteal cleft and underwear. No definite palpable fluctuance in the skin of the buttocks. Too tender to palpate deeper in the gluteal cleft or do a rectal exam. Musculoskeletal: RUE: Normal range of motion. No tenderness. No deformity LUE: Normal range of motion. No tenderness. No deformity RLE: Normal range of motion. No edema. No tenderness. No deformity LLE: Normal range of motion. No edema. No tenderness. No deformity Neurological: Alert and oriented to person, place, and time. Normal strength. CN II-VII intact. No sensory deficit. GCS eye subscore is 4. GCS verbal subscore is 5. GCS motor subscore is 6. Normal coordination Skin: Skin is warm and dry. No rash noted. No pallor. Normal capillary refill. Psychiatric: Normal mood. Normal affect. Const: Vital Signs, click to edit/add: Vital Signs - 24 hr 07/23/23 19:28 Temperature 98.1 F Pulse Rate [Left P ulse Oximeter] 73 Respiratory Rate 18 Blood Pressure [Ri ght Upper Arm] 138/81 Pulse Oximetry 99 Oxygen Delivery Me thod Room Air Course Course ED Course: Recheck-more comfortable after Dilaudid. Hemodynamically stable. Vital Signs Vital signs: Initial Vital Signs Temperature 98.1 F 07/23/23 19:28 Temperature Source Temporal Artery Scan 07/23/23 19:28 Pulse Rate 73 07/23/23 19:28 Pulse Rhythm Regular 07/23/23 19:28 Respiratory Rate 18 07/23/23 19:28 Blood Pressure 138/81 07/23/23 19:28 Blood Pressure Mean 100 07/23/23 19:28 Blood Pressure Position Standing 07/23/23 19:28 Pulse Oximetry 99 07/23/23 19:28 Oxygen Delivery Method Room Air 07/23/23 19:28 Vital Signs Temperature 98.1 F 07/23/23 19:28 Pulse Rate 73 07/23/23 19:28 Respiratory Rate 18 07/23/23 19:28 Blood Pressure 138/81 07/23/23 19:28 Pulse Oximetry 99 07/23/23 19:28 Oxygen Delivery Method Room Air 07/23/23 19:28 Temperature 98.1 F 07/23/23 19:28 Pulse Rate 73 07/23/23 19:28 Respiratory Rate 18 07/23/23 19:28 Blood Pressure 138/81 07/23/23 19:28 Pulse Oximetry 99 07/23/23 19:28 Oxygen Delivery Method Room Air 07/23/23 19:28 Medications Administered Medications: Discontinued Medications Generic Name Dose Route Start Last Admin Trade Name Freq PRN Reason Stop Dose Admin Ciprofloxacin 500 mg 07/23/23 23:48 07/23/23 23:55 Ciprofloxacin 500 Mg Tablet PO 07/23/23 23:49 500 mg ONCE ONE Administration Hydromorphone HCl 0.5 mg 07/23/23 20:32 07/23/23 21:03 Hydromorphone 0.5 Mg/0.5 Ml Inj IVP 0.5 mg Q1H PRN Administration Pain Piperacillin Sod/Tazobactam 100 mls @ 200 mls/hr 07/23/23 20:45 07/23/23 22:24 Sod 4.5 gm/ Sodium Chloride IVPB Infused Q6H AYAN Infusion Metronidazole 500 mg 07/23/23 23:48 07/23/23 23:55 Metronidazole 500 Mg Tablet PO 07/23/23 23:49 500 mg ONCE ONE Administration Ondansetron HCl 4 mg 07/23/23 20:32 07/23/23 21:05 Ondansetron 2 Mg/Ml Inj IVP 07/23/23 20:33 4 mg ONCE ONE Administration Oxycodone HCl 5 mg 07/23/23 23:48 07/23/23 23:55 Oxycodone 5 Mg Tablet PO 07/23/23 23:49 5 mg ONCE ONE Administration Medical Decision Making MDM Narrative Medical decision making narrative: This is a 58-year-old female with history of Crohn's disease and known perirectal abscesses. She is status post drainage performed by Colorectal surgery through the [facility] at [facility] last month and has residual drains in place. She had been improving while on antibiotics but finished them a couple of weeks ago. She is now having recurrent pain ongoing for the past 3 days or so in her perirectal area and pelvis. She was sent to the ER on advice by her colorectal surgery office today. Workup here shows reassuring laboratory workup. Given recurrent pain in the pelvis and and gluteal area we did obtain CT scan to look for any sign of recurrent abscesses, or other acute surgical complications. CT scan shows overall improvement with compared to recent prior imaging. Laboratory workup reassuring. She is hemodynamically stable, afebrile. At this point I do not think she needs to be transferred back up to [facility] for admission for IV antibiotics or any acute surgical intervention. However with recurring pain and potential for evolving infection we will put her back on Cipro and Flagyl as an outpatient basis. Will provide an additional prescription for oxycodone to help manage her pain. She will contact her colorectal surgery office in the morning to move up her scheduled follow-up appointment with a goal to get rechecked within the next 2 days. Precautions for return to the ER reviewed. Of note she says she has an intolerance to Tylenol and it makes her head feel swollen and painful. Therefore we cannot prescribe Percocet or Tylenol for her pain. Oxycodone prescription provided. Lab Data Labs: Lab Results 07/23/23 Range/Units 21:05 WBC 9.16 (4.50-11.00) K/uL RBC 3.87 L (4.00-5.20) m/uL Hgb 11.3 L (12.0-16.0) gm/dL Hct 35.5 (33.0-51.0) % MCV 92 (80-100) fL MCH 29 (26-34) pg MCHC 32 (32-36) gm/dL RDW Coeff of Yury 14.6 (11.5-15.5) % Plt Count 337 (140-440) K/uL Neut % (Auto) 77.9 H (42.0-72.0) % Lymph % (Auto) 13.6 L (20-44) % [place] % (Auto) 6.8 (0.0-11.0) % Eos % (Auto) 1.2 (0.0-7.0) % Baso % (Auto) 0.4 (0.0-3.0) % Neut # (Auto) 7.10 H (1.7-7.0) K/uL Lymph # (Auto) 1.20 (0.90-2.90) K/uL [place] # (Auto) 0.60 (0.00-0.90) K/UL Eos # (Auto) 0.11 (0.00-0.50) K/uL Baso # (Auto) 0.04 (0.00-0.30) K/uL Abs Immat Gran (auto) 0.01 (0.00-0.30) K/uL Imm/Tot Granulo (auto) 0.1 % Sodium 137 (135-149) mmol/L Potassium 3.8 (3.6-5.1) mmol/L Chloride 103 (96-114) mmol/L Carbon Dioxide 31 (20-32) mmol/L Anion Gap 3 L (7-15) mEq/L BUN 14 (7-30) mg/dL Creatinine 0.6 (0.5-1.5) mg/dL Estimated Creat Clear 81.97 Estimated GFR 104 ml/min Glucose 91 (60-115) mg/dL Lactate 0.6 (0.5-1.9) mmol/L Calcium 9.3 (8.4-10.6) mg/dL C-Reactive Protein 2.1 H (0.5-1.0) mg/dL Imaging Data CT scan - abdomen: Attestation: I have reviewed the pertinent imaging results. Radiologist's impression: IMPRESSION: Significant interval decrease in the size of the perirectal and perianal abscesses seen on the exam from 06/19/2023. No significant fluid collection or fistula remains within the right ischial fat about the surgical drain. Tiny residual 1.9 x 0.7 cm left anterior perirectal abscess. Discharge Plan Discharge Clinical Impression: Abscess, perirectal Patient Disposition: Home, Self-Care Condition: Stable Instructions: Rectal Abscess (ED) Additional Instructions: As we discussed, we will put you back on antibiotics to treat your perirectal abscesses. Fortunately your labs look reassuring tonight in your CT scan shows that your previous abscesses are substantially improved in size. It is very important for you to call your colorectal surgeon tomorrow morning and arrange a recheck appointment with them within the next 2-3 days. Use the oxycodone as needed for pain control. Please continue on the antibiotics (Cipro and Flagyl). If you have worsening pain, high fever, or any problems, come back to your ER or see your colorectal surgeon right away Prescriptions: New oxycodone 5 mg capsule 5 mg PO Q6H PRN (Reason: pain) Qty: 10 0RF ciprofloxacin HCl 500 mg tablet 500 mg PO BID Qty: 14 0RF metronidazole 500 mg tablet 500 mg PO TID Qty: 21 0RF No Action cephalexin 500 mg capsule 500 mg PO TID oxycodone 5 mg tablet 5 mg PO DAILY PRN (Reason: pain) Qty: 10 0RF metronidazole 500 mg tablet 500 mg PO BID Qty: 28 0RF fluoxetine 10 mg tablet 10 mg PO QAM Qty: 60 0RF Follow Up/Referrals: Ivette Trujillo MD [Staff Physician] - Stand Alone Forms: PartSimple Info Instructions
--- NOTE | 2023-07-23 20:32 | CT_ITS ---
Patient: DONALD GARCIA Facility:?[facility] Patient ID:?[id number] Site Patient ID:?[id number]. Site :?[id number] Study:?CT-Abdomen/Pelvis W/ 55CC ISOVUE 370-07/23/2023 9:22:45 PM Ordering Physician:GILL Final Report: INDICATION: CROHNS WITH PERIRECTALABSCESS, DRAINS PLACED 05/19/23, WORSENING PAIN. TECHNIQUE: CT abdomen and pelvis acquired with 55 cc of Isovue 370 IV contrast. COMPARISON: CT abdomen and pelvis 06/19/[address] abdomen and pelvis 05/17/2023. FINDINGS: Lower chest: Unremarkable. Liver: Unremarkable. Normal in size and attenuation. No suspicious masses. Gallbladder and bile ducts: Unremarkable. No stones or inflammation. No biliary dilatation. Pancreas: Unremarkable. No mass or inflammation. Spleen: Unremarkable. Normal in size. No masses. Adrenal glands: Unremarkable. No nodules. Kidneys: 5 mm nonobstructing right nephrolith, unchanged. 2 mm nonobstructing left nephrolith, unchanged. GI tract: Similar-appearing postsurgical changes at the gastroesophageal junction. Mild mural thickening of the distal rectum. Residual 1.9 x 0.7 cm left anterior perirectal abscess (2/126). There is a right-sided perianal drain without a significant surrounding fluid collection. Mild perianal inflammatory stranding. Band of inflammatory stranding within the left perianal subcutaneous fat, likely represents a perianal fistula, possibly old. No bowel obstruction. No pneumatosis. Vasculature: Abdominal aorta is normal in caliber. Mesenteric arteries are patent. Lymph nodes: No lymphadenopathy. Peritoneum/Abdominal Wall: Perianal region as above. Unremarkable anterior abdominal wall. No free air. Pelvis: Unremarkable. Bones: Unremarkable for age. IMPRESSION: Significant interval decrease in the size of the perirectal and perianal abscesses seen on the exam from 06/19/2023. No significant fluid collection or fistula remains within the right ischial fat about the surgical drain. Tiny residual 1.9 x 0.7 cm left anterior perirectal abscess. Please note that all CT scans at this facility use dose modulation, iterative reconstruction, and/or weight-based dosing when appropriate to reduce radiation dose to as low as reasonably achievable. Dictated by Kaushal Cardenas MD @ 07/23/2023 11:36:31 PM Signed by:?Kaushal Cardenas MD @07/23/2023 11:41:44 PM (Electronic Signature)
[2023-07-23] MEDS: HYDROmorphone 0.5 mg/0.5 ml inj IVP (21:03)
[2023-07-23] MEDS: ONDANSETRON 2 MG/ML inj 4 MG IVP (21:05)
[2023-07-23 21:09] LABS: Lactate* 0.6 mmol/L (0.5-1.9)
[2023-07-23 21:11] LABS: Basophils Absolute Auto 0.04 K/uL (0.00-0.30); Basophils Percent Auto 0.4 % (0.0-3.0); Eosinophils Absolute Auto 0.11 K/uL (0.00-0.50); Eosinophils Percent Auto 1.2 % (0.0-7.0); Hematocrit 35.5 % (33.0-51.0); Hemoglobin* 11.3 gm/dL (12.0-16.0); Immature Granulocytes Abs Auto 0.01 K/uL (0.00-0.30); Immature Granulocytes Pct Auto 0.1 %; Lymphocytes Percent Auto 13.6 % (20-44); Mean Corpuscular HGB Conc 32 gm/dL (32-36); Mean Corpuscular Hemoglobin 29 pg (26-34); Mean Corpuscular Volume 92 fL (80-100); Monocytes Percent Auto 6.8 % (0.0-11.0); Neutrophils Percent Auto 77.9 % (42.0-72.0); Platelet Count* 337 K/uL (140-440); RDW Coefficient of Variation % 14.6 % (11.5-15.5); Red Blood Count 3.87 m/uL (4.00-5.20); White Blood Count* 9.16 K/uL (4.50-11.00)
[2023-07-23 21:19] LABS: Slide Review Reflex No
[2023-07-23] MEDS: PIPERACILLIN/TAZOBACTAM 4.5 GM in 0.9 % SODIUM CHLORIDE Mini-bag 100 ML IVPB (21:25)
[2023-07-23 21:26] LABS: Chloride* 103 mmol/L (96-114); Potassium* 3.8 mmol/L (3.6-5.1); Sodium* 137 mmol/L (135-149)
[2023-07-23 21:29] LABS: Creatinine* 0.6 mg/dL (0.5-1.5); Est. Creatinine Clearance* 81.97; Estimated Glomerular Filt Rate 104 ml/min
[2023-07-23 21:30] LABS: Anion Gap 3 mEq/L (7-15); Blood Urea Nitrogen* 14 mg/dL (7-30); Calcium* 9.3 mg/dL (8.4-10.6); Carbon Dioxide* 31 mmol/L (20-32); Glucose* 91 mg/dL (60-115)
[2023-07-23 21:33] LABS: C Reactive Protein* 2.1 mg/dL (0.5-1.0)
[2023-07-23] MEDS: metroNIDAZOLE 500 MG TABLET PO (23:55)
[2023-07-23] MEDS: CIPROFLOXACIN 500 MG TABLET PO (23:55)
[2023-07-23] MEDS: OXYCODONE 5 MG TABLET PO (23:55)
== END 2023-07-24 00:06 | disposition home or self-care (01) ==
PROVIDERS: Emergency Provider Emergency Medicine; PCP Nurse Practitioner Family
DX: K61.1 Rectal abscess (principal)
CPT/HCPCS: 36415; 74177; 80048; 83605; 85025; 86140; 96365; 96375; 99283; 99284; A9270; J1170; J2405; J2543; Q9967